=== PATIENT | male | born 1960 | race Two or more races ===

== ENCOUNTER 2022-04-13 16:03 | Inpatient (IN) | payer MEDICARE, OTHER ==
[~2022-04-13] VITALS: Ht 175.3 cm; Wt 105.4 kg
[2022-04-13 18:17] LABS: Urine Bacteria FEW /hpf (None Seen); Urine Blood Negative /uL (Negative); Urine Mucus FEW (None Seen); Urine Specific Gravity 1.034 (1.001-1.035); Urine WBC 1 /hpf (0 - 3)
[2022-04-13 18:46] LABS: Basophils # (auto) 0.1 10 ^3/uL (0-0.2); Basophils % (auto) 1.1 % (0.0-2.0); Eosinophils # (auto) 0.1 10 ^3/uL (0-0.8); Eosinophils % (auto) 2.6 % (0.0-7.0); Hematocrit 37.7 % (41.0-53.0); Hemoglobin 12.7 g/dL (13.5-17.5); Lymphocytes # (auto) 1.9 10 ^3/uL (0.4-5.4); Lymphocytes % (auto) 35.7 % (10.0-50.0); Mean Corpuscular Hemoglobin 33.9 pg (28.0-32.0); Mean Corpuscular Hgb Conc. 33.6 g/dL (32.0-36.0); Mean Corpuscular Volume 100.7 fL (80.0-100.0); Monocytes # (auto) 0.6 10 ^3/uL (0-1.3); Monocytes % (auto) 11.4 % (0.0-12.0); Neutrophils # (auto) 2.6 10 ^3/uL (1.6-8.6); Neutrophils % (auto) 49.2 % (37.0-80.0); Nucleated Red Blood Cells % 0.3 %; Red Blood Cells 3.74 10^6/uL (4.5-5.90); Red Cell Distribution Width 14.9 % (11.8-14.3); White Blood Cell 5.3 10^3/uL (4.4-10.8)
[2022-04-13 19:02] LABS: Amylase 36 U/L (25-115); Lipase 144 U/L (73-393)
[2022-04-13 19:04] LABS: Albumin 2.2 g/dL (3.4-5.0); BUN/Creatinine Ratio 15.9; Potassium 3.2 mmol/L (3.5-5.1)
[2022-04-13 19:07] LABS: Total Protein 6.5 g/dL (6.4-8.2)
[2022-04-13 21:49] LABS: INR 1.59 (0.9-1.15)
[2022-04-13] MEDS ORDERED: LORazepam 0.5 MG TAB PO PRN (23:15)
[2022-04-13] MEDS ORDERED: ONDANSETRON HCL 4 MG/2 ML VIAL IV PRN (23:15)
[2022-04-13] MEDS ORDERED: DOCUSATE SOD 100 MG CAP PO PRN (23:15)
[2022-04-13] MEDS ORDERED: MORPHINE SULFATE INJ 2 MG/ml SYRG IV PRN (23:15)
[2022-04-13] MEDS ORDERED: ACETAMINOPHEN 325 MG TAB PO PRN (23:15)
[2022-04-13] MEDS ORDERED: HYDROcodone-ACET 5/325MG TAB PO PRN (23:15)
[2022-04-13] MEDS: SODIUM CHLORIDE 0.9% 1,000 ML IV SCH (23:39)
[2022-04-13] MEDS: metroNIDAZOLE 500MG/100ML 100 ML IV SCH (23:39)
[2022-04-14 06:23] LABS: Basophils # (auto) 0 10 ^3/uL (0-0.2); Eosinophils # (auto) 0.1 10 ^3/uL (0-0.8); Hemoglobin 11.2 g/dL (13.5-17.5); Monocytes # (auto) 0.5 10 ^3/uL (0-1.3); Monocytes % (auto) 13.1 % (0.0-12.0); Neutrophils # (auto) 1.5 10 ^3/uL (1.6-8.6); Nucleated Red Blood Cells % 0.2 %; Red Cell Distribution Width 14.7 % (11.8-14.3)
[2022-04-14 06:25] LABS: Basophils % (auto) 0.7 % (0.0-2.0); Eosinophils % (auto) 3.6 % (0.0-7.0); Lymphocytes # (auto) 1.6 10 ^3/uL (0.4-5.4); Lymphocytes % (auto) 42.8 % (10.0-50.0); Mean Corpuscular Hemoglobin 34.3 pg (28.0-32.0); Mean Corpuscular Hgb Conc. 34.1 g/dL (32.0-36.0); Mean Corpuscular Volume 100.8 fL (80.0-100.0); Neutrophils % (auto) 39.8 % (37.0-80.0); Red Blood Cells 3.28 10^6/uL (4.5-5.90); White Blood Cell 3.8 10^3/uL (4.4-10.8)
[2022-04-14 06:29] LABS: BUN/Creatinine Ratio 22.2; Calcium 7.5 mg/dL (8.5-10.1); Potassium 3.1 mmol/L (3.5-5.1)
[2022-04-14] MEDS: metroNIDAZOLE 500MG/100ML 100 ML IV SCH ×3 (06:36→22:08)
[2022-04-14] MEDS ORDERED: POTASSIUM CHL 20MEQ/100ML 100 ML IV ONE (11:00)
[2022-04-14] MEDS ORDERED: POTASSIUM CHL 20 Meq TABLET PO ONE (11:00)
[2022-04-14] MEDS: LACTULOSE 20Gm/30ML SOLN PO SCH ×2 (11:34→18:47)
[2022-04-14 13:27] VITALS: BP 110/73
[2022-04-14] MEDS ORDERED: FUROSEMIDE 40 MG/4 ML VIAL IV ONE (15:30)
[2022-04-14 16:24] VITALS: BP 111/63
[2022-04-14] MEDS: SODIUM CHLORIDE 0.9% 1,000 ML IV SCH (18:16)
[2022-04-14] MEDS ORDERED: TAMS0.4C36 PO (18:45)
[2022-04-14] MEDS ORDERED: METF-370 PO (18:45)
[2022-04-14 21:44] VITALS: BP 106/70
[2022-04-15] MEDS: LACTULOSE 20Gm/30ML SOLN PO SCH ×5 (00:14→23:18)
[2022-04-15 05:02] VITALS: BP 115/66
[2022-04-15] MEDS: metroNIDAZOLE 500MG/100ML 100 ML IV SCH ×3 (06:50→22:13)
[2022-04-15 07:14] LABS: Basophils # (auto) 0 10 ^3/uL (0-0.2); Mean Corpuscular Hemoglobin 34.8 pg (28.0-32.0); Monocytes # (auto) 0.6 10 ^3/uL (0-1.3)
[2022-04-15 07:18] LABS: Basophils % (auto) 0.8 % (0.0-2.0); Eosinophils # (auto) 0.1 10 ^3/uL (0-0.8); Eosinophils % (auto) 3.5 % (0.0-7.0); Hematocrit 32.4 % (41.0-53.0); Hemoglobin 11.1 g/dL (13.5-17.5); Lymphocytes # (auto) 1.6 10 ^3/uL (0.4-5.4); Lymphocytes % (auto) 38.6 % (10.0-50.0); Mean Corpuscular Hgb Conc. 34.4 g/dL (32.0-36.0); Mean Corpuscular Volume 101.1 fL (80.0-100.0); Monocytes % (auto) 14.2 % (0.0-12.0); Neutrophils # (auto) 1.8 10 ^3/uL (1.6-8.6); Neutrophils % (auto) 42.9 % (37.0-80.0); Nucleated Red Blood Cells % 0.5 %; Red Cell Distribution Width 14.4 % (11.8-14.3); White Blood Cell 4.2 10^3/uL (4.4-10.8)
[2022-04-15 07:30] LABS: Calcium 7.4 mg/dL (8.5-10.1); Potassium 3.1 mmol/L (3.5-5.1)
[2022-04-15 07:32] LABS: BUN/Creatinine Ratio 15.3
[2022-04-15 08:46] VITALS: BP 107/94
[2022-04-15] MEDS: FUROSEMIDE 40 MG/4 ML VIAL IV SCH (09:45)
[2022-04-15] MEDS: SODIUM CHLORIDE 0.9% 1,000 ML IV SCH (09:45)
[2022-04-15 10:50] LABS: Alcohol, Urine < 3.0 mg/dL (0-10); Amphetamine Screen, Urine NEGATIVE (NEGATIVE); Barbiturate Scree,Urine NEGATIVE (NEGATIVE); Benzodiazephine Screen, Urine NEGATIVE (NEGATIVE); Cannabinoid Screen, Urine NEGATIVE (NEGATIVE); Cocaine Screen, Urine NEGATIVE (NEGATIVE); Opiate Scree,Urine NEGATIVE (NEGATIVE); Phencyclidine Screen, Urine NEGATIVE (NEGATIVE)
[2022-04-15] MEDS ORDERED: DEXTROSE (50%) 50ML SYRG IV PRN (11:30)
[2022-04-15] MEDS: InsuLIN REG 1unit/0.01ml Soln (100units/ml) SC SCH ×3 (11:30→21:59)
[2022-04-15] MEDS: ACCU-CHEK COMFORT CURVE STRIP VI SCH ×3 (11:50→21:59)
[2022-04-15 12:00] VITALS: BP 96/62
[2022-04-15] MEDS: POTASSIUM CHL 20MEQ/100ML 100 ML IV SCH ×2 (13:30→17:54)
[2022-04-15 16:00] VITALS: BP 95/52
[2022-04-15] MEDS ORDERED: phytonadione 10 MG in SODIUM CHL 0.9% 50 ML IV ONE (17:30)
[2022-04-15 21:41] VITALS: BP 100/59
[2022-04-16] MEDS: SODIUM CHLORIDE 0.9% 1,000 ML IV SCH (04:11)
[2022-04-16 05:05] VITALS: BP 109/60
[2022-04-16] MEDS: metroNIDAZOLE 500MG/100ML 100 ML IV SCH (05:42)
[2022-04-16] MEDS: LACTULOSE 20Gm/30ML SOLN PO SCH (05:43)
[2022-04-16 06:11] LABS: Hemoglobin 11.6 g/dL (13.5-17.5); Lymphocytes # (auto) 2.5 10 ^3/uL (0.4-5.4); Nucleated Red Blood Cells % 0.5 %
[2022-04-16 06:14] LABS: BUN/Creatinine Ratio 18.5; Calcium 7.4 mg/dL (8.5-10.1); Potassium 3.3 mmol/L (3.5-5.1)
[2022-04-16 06:15] LABS: Basophils # (auto) 0 10 ^3/uL (0-0.2); Basophils % (auto) 0.6 % (0.0-2.0); Eosinophils # (auto) 0.2 10 ^3/uL (0-0.8); Eosinophils % (auto) 4.2 % (0.0-7.0); Hematocrit 33.6 % (41.0-53.0); Lymphocytes % (auto) 42.5 % (10.0-50.0); Mean Corpuscular Hemoglobin 35.1 pg (28.0-32.0); Mean Corpuscular Hgb Conc. 34.6 g/dL (32.0-36.0); Mean Corpuscular Volume 101.4 fL (80.0-100.0); Monocytes # (auto) 0.6 10 ^3/uL (0-1.3); Monocytes % (auto) 10.7 % (0.0-12.0); Neutrophils # (auto) 2.4 10 ^3/uL (1.6-8.6); Red Blood Cells 3.32 10^6/uL (4.5-5.90); Red Cell Distribution Width 14.4 % (11.8-14.3); White Blood Cell 5.8 10^3/uL (4.4-10.8)
[2022-04-16] MEDS: ACCU-CHEK COMFORT CURVE STRIP VI SCH ×2 (06:45→11:42)
[2022-04-16] MEDS: InsuLIN REG 1unit/0.01ml Soln (100units/ml) SC SCH ×2 (06:45→11:30)
[2022-04-16 09:43] VITALS: BP 109/62
[2022-04-16] MEDS ORDERED: POTASSIUM EFFERVESENT TAB 25 MEQ GT ONE (10:30)
[2022-04-16] MEDS ORDERED: FURO1TAB33 PO (10:31)
[2022-04-16] MEDS ORDERED: LACT10SO3 PO (10:31)
[2022-04-16] MEDS: FUROSEMIDE 40 MG/4 ML VIAL IV SCH (11:02)
[2022-04-16 11:25] VITALS: BP 109/62
[2022-04-17 10:14] LABS: Hepatitis B Surface Antibody Negative (Negative)
[2022-04-17 10:50] LABS: Hepatitis A Total Antibody Positive (Negative)
[2022-04-17 13:13] LABS: Hepatitis C Antibody Negative (Negative)
== END 2022-04-16 11:45 | disposition home or self-care (01) | DRG 433 ==
LOC: ER 16:03 → OVERFLOW 23:11 → WEST WING 04-14 12:42
PROVIDERS: ADMIT Hospitalist; ATTEND Internal Medicine Pulmonary Disease
PROC: 0W9G3ZZ Drainage of Peritoneal Cavity, Percutaneous Approach (ICD-10-PCS; principal; 2022-04-13)
DX: K74.60 Unspecified cirrhosis of liver (principal); R18.8 Other ascites; K72.90 Hepatic failure, unspecified without coma; E88.09 Other disorders of plasma-protein metabolism, not elsewhere classified; Z20.822 Contact with and (suspected) exposure to COVID-19; F17.200 Nicotine dependence, unspecified, uncomplicated; F10.10 Alcohol abuse, uncomplicated; E87.70 Fluid overload, unspecified; E11.9 Type 2 diabetes mellitus without complications
CPT/HCPCS: 36415; 49082; 74176; 76705; 80048; 80053; 80307; 81001; 82140; 82150; 82728; 82962; 83690; 84484; 85025; 85610; 86704; 86706; 86708; 86803; 87086; 87205; 87340; 89051; 93005; 96360; 96361; G0378; J3430; J3480; J3490

== ENCOUNTER 2022-04-18 20:31 | Inpatient (IN) | payer MEDICARE ==
[~2022-04-18] VITALS: Ht 175.3 cm; Wt 106.9 kg
[~2022-04-18 20:31] MED LIST: FURO1TAB33 PO; LACT10SO3 PO; METF-370 PO; TAMS0.4C36 PO
[2022-04-18] MEDS ORDERED: FUROSEMIDE 100 MG/10ML VIAL IV ONE (22:30)
[2022-04-18] MEDS ORDERED: SPIRONOLACTONE 25 MG TAB PO ONE (22:30)
[2022-04-19 00:30] LABS: Basophils # (auto) 0 10 ^3/uL (0-0.2); Eosinophils # (auto) 0.2 10 ^3/uL (0-0.8); Lymphocytes # (auto) 1.9 10 ^3/uL (0.4-5.4); Monocytes # (auto) 0.5 10 ^3/uL (0-1.3)
[2022-04-19 00:32] LABS: Basophils % (auto) 0.5 % (0.0-2.0); Eosinophils % (auto) 3.5 % (0.0-7.0); Hematocrit 34.3 % (41.0-53.0); Hemoglobin 11.7 g/dL (13.5-17.5); Lymphocytes % (auto) 40.4 % (10.0-50.0); Mean Corpuscular Hemoglobin 34.8 pg (28.0-32.0); Mean Corpuscular Hgb Conc. 34.1 g/dL (32.0-36.0); Mean Corpuscular Volume 102.1 fL (80.0-100.0); Monocytes % (auto) 11.4 % (0.0-12.0); Neutrophils % (auto) 44.2 % (37.0-80.0); Nucleated Red Blood Cells % 0.4 %; Red Blood Cells 3.36 10^6/uL (4.5-5.90); Red Cell Distribution Width 15.3 % (11.8-14.3); White Blood Cell 4.6 10^3/uL (4.4-10.8)
[2022-04-19 00:42] LABS: INR 1.92 (0.9-1.15)
[2022-04-19 00:47] LABS: Albumin 1.9 g/dL (3.4-5.0); Calcium 7.6 mg/dL (8.5-10.1); Potassium 3.5 mmol/L (3.5-5.1)
[2022-04-19 00:48] LABS: BUN/Creatinine Ratio 19.4
[2022-04-19 00:51] LABS: Bilirubin, Total 1.6 mg/dL (0.2-1.0); Total Protein 5.9 g/dL (6.4-8.2)
[2022-04-19] MEDS ORDERED: MORPHINE SULFATE INJ 2 MG/ml SYRG IV PRN ×2 (02:00→03:00)
[2022-04-19] MEDS ORDERED: DEXTROSE (50%) 50ML SYRG IV PRN (02:00)
[2022-04-19] MEDS ORDERED: ONDANSETRON HCL 4 MG/2 ML VIAL IV PRN (02:00)
[2022-04-19] MEDS ORDERED: IBUPROFEN 600 MG TAB PO PRN (02:15)
[2022-04-19] MEDS: ALBUMIN 25% 100 ML IV SCH ×2 (02:23→11:17)
[2022-04-19] MEDS ORDERED: NITROGLYCERIN 0.4 MG SL TAB SL PRN (03:00)
[2022-04-19 04:11] LABS: Basophils # (auto) 0.1 10 ^3/uL (0-0.2); Basophils % (auto) 1.3 % (0.0-2.0); Eosinophils # (auto) 0.1 10 ^3/uL (0-0.8); Eosinophils % (auto) 3.5 % (0.0-7.0); Hematocrit 31.7 % (41.0-53.0); Hemoglobin 10.7 g/dL (13.5-17.5); Lymphocytes # (auto) 1.6 10 ^3/uL (0.4-5.4); Lymphocytes % (auto) 41.8 % (10.0-50.0); Mean Corpuscular Hgb Conc. 33.7 g/dL (32.0-36.0); Mean Corpuscular Volume 100.9 fL (80.0-100.0); Monocytes # (auto) 0.4 10 ^3/uL (0-1.3); Monocytes % (auto) 11.2 % (0.0-12.0); Neutrophils # (auto) 1.6 10 ^3/uL (1.6-8.6); Neutrophils % (auto) 42.2 % (37.0-80.0); Nucleated Red Blood Cells % 0.2 %; Red Blood Cells 3.14 10^6/uL (4.5-5.90); White Blood Cell 3.9 10^3/uL (4.4-10.8)
[2022-04-19 05:09] LABS: Albumin 2.2 g/dL (3.4-5.0); BUN/Creatinine Ratio 19.6; Bilirubin, Total 1.9 mg/dL (0.2-1.0); Calcium 7.6 mg/dL (8.5-10.1); Total Protein 5.7 g/dL (6.4-8.2)
[2022-04-19] MEDS ORDERED: POTASSIUM CHL 20 Meq TABLET PO ONE (05:45)
[2022-04-19] MEDS: LACTULOSE 20Gm/30ML SOLN PO SCH ×4 (05:51→23:56)
[2022-04-19] MEDS: SODIUM CHLOR 0.9% PF (SALINE LOCK) 10ML VIAL/SYR IV SCH ×3 (05:51→21:27)
[2022-04-19] MEDS: ACCU-CHEK COMFORT CURVE STRIP VI SCH ×4 (06:41→21:27)
[2022-04-19] MEDS: InsuLIN REG 1unit/0.01ml Soln (100units/ml) SC SCH ×4 (06:41→21:30)
[2022-04-19] MEDS: FUROSEMIDE 40 MG/4 ML VIAL IV SCH (11:16)
[2022-04-19] MEDS: FAMOTIDINE (10MG/ML) 2ML VL IV SCH ×2 (11:17→21:27)
[2022-04-19] MEDS: SPIRONOLACTONE 25 MG TAB PO SCH (11:18)
[2022-04-19 15:21] VITALS: BP 109/68
[2022-04-19 17:00] VITALS: BP 109/68
[2022-04-19] MEDS ORDERED: phytonadione 10 MG in SODIUM CHL 0.9% 50 ML IV ONE (18:30)
[2022-04-19] MEDS ORDERED: ALBUMIN 25% 100 ML IV SCH (21:45)
[2022-04-19 22:50] VITALS: BP 103/77
[2022-04-20 05:00] VITALS: BP 99/57
[2022-04-20 05:04] LABS: Albumin 2.1 g/dL (3.4-5.0); BUN/Creatinine Ratio 14.3; Basophils # (auto) 0 10 ^3/uL (0-0.2); Calcium 7.4 mg/dL (8.5-10.1); Eosinophils # (auto) 0.1 10 ^3/uL (0-0.8); Hemoglobin 10.5 g/dL (13.5-17.5); Mean Corpuscular Volume 101.2 fL (80.0-100.0); Monocytes # (auto) 0.5 10 ^3/uL (0-1.3); Nucleated Red Blood Cells % 0.1 %; Potassium 3.9 mmol/L (3.5-5.1); Red Cell Distribution Width 14.7 % (11.8-14.3)
[2022-04-20 05:05] LABS: Basophils % (auto) 0.5 % (0.0-2.0); Eosinophils % (auto) 3.2 % (0.0-7.0); Hematocrit 30.5 % (41.0-53.0); Lymphocytes # (auto) 1.4 10 ^3/uL (0.4-5.4); Lymphocytes % (auto) 39.4 % (10.0-50.0); Mean Corpuscular Hemoglobin 34.7 pg (28.0-32.0); Mean Corpuscular Hgb Conc. 34.3 g/dL (32.0-36.0); Monocytes % (auto) 13.2 % (0.0-12.0); Neutrophils # (auto) 1.6 10 ^3/uL (1.6-8.6); Neutrophils % (auto) 43.7 % (37.0-80.0); Red Blood Cells 3.01 10^6/uL (4.5-5.90); White Blood Cell 3.7 10^3/uL (4.4-10.8)
[2022-04-20 05:07] LABS: Bilirubin, Total 1.2 mg/dL (0.2-1.0); Total Protein 5.1 g/dL (6.4-8.2)
[2022-04-20] MEDS: SODIUM CHLOR 0.9% PF (SALINE LOCK) 10ML VIAL/SYR IV SCH ×3 (06:17→23:09)
[2022-04-20] MEDS: LACTULOSE 20Gm/30ML SOLN PO SCH ×4 (06:17→23:19)
[2022-04-20] MEDS: InsuLIN REG 1unit/0.01ml Soln (100units/ml) SC SCH ×4 (06:18→22:00)
[2022-04-20] MEDS: ACCU-CHEK COMFORT CURVE STRIP VI SCH ×4 (06:18→23:09)
[2022-04-20] MEDS: SPIRONOLACTONE 25 MG TAB PO SCH (09:30)
[2022-04-20] MEDS: FAMOTIDINE (10MG/ML) 2ML VL IV SCH ×2 (09:30→23:08)
[2022-04-20] MEDS: FUROSEMIDE 40 MG/4 ML VIAL IV SCH (09:31)
[2022-04-20 09:32] VITALS: BP 111/57
[2022-04-20] MEDS ORDERED: PHYTONADIONE (VIT K)10 MG/ML 1ML VIAL SUBCUT ONE (10:30)
[2022-04-20 12:26] LABS: INR 1.88 (0.9-1.15); Partial Thromboplastin Time 38.4 sec (24.6-33.4)
[2022-04-20 12:57] VITALS: BP 96/48
[2022-04-20 16:25] VITALS: BP 118/53
[2022-04-20 22:00] VITALS: BP 112/68
[2022-04-21 05:30] VITALS: BP 107/66
[2022-04-21] MEDS: ACCU-CHEK COMFORT CURVE STRIP VI SCH ×2 (06:14→12:43)
[2022-04-21] MEDS: InsuLIN REG 1unit/0.01ml Soln (100units/ml) SC SCH ×2 (06:14→11:30)
[2022-04-21] MEDS: SODIUM CHLOR 0.9% PF (SALINE LOCK) 10ML VIAL/SYR IV SCH (06:15)
[2022-04-21] MEDS: LACTULOSE 20Gm/30ML SOLN PO SCH ×2 (06:18→12:00)
[2022-04-21 08:00] VITALS: BP 105/64
[2022-04-21 09:00] VITALS: BP 105/64
[2022-04-21] MEDS: FUROSEMIDE 40 MG/4 ML VIAL IV SCH (10:18)
[2022-04-21] MEDS: FAMOTIDINE (10MG/ML) 2ML VL IV SCH (10:18)
[2022-04-21] MEDS: SPIRONOLACTONE 25 MG TAB PO SCH (10:18)
[2022-04-21 11:58] VITALS: BP 105/64
== END 2022-04-21 12:45 | disposition home or self-care (01) | DRG 432 ==
LOC: ER 20:31 → OVERFLOW 04-19 02:58 → WEST WING 04-19 13:55
PROVIDERS: ADMIT Nurse Practitioner Family; ATTEND Family Medicine
PROC: 0W9G3ZZ Drainage of Peritoneal Cavity, Percutaneous Approach (ICD-10-PCS; principal; 2022-04-21)
DX: K74.60 Unspecified cirrhosis of liver (principal); E43 Unspecified severe protein-calorie malnutrition; D68.9 Coagulation defect, unspecified; R18.8 Other ascites; K72.90 Hepatic failure, unspecified without coma; E88.09 Other disorders of plasma-protein metabolism, not elsewhere classified; F17.200 Nicotine dependence, unspecified, uncomplicated; R16.1 Splenomegaly, not elsewhere classified; R79.89 Other specified abnormal findings of blood chemistry; Z20.822 Contact with and (suspected) exposure to COVID-19; Z68.34 Body mass index [BMI] 34.0-34.9, adult; Z71.6 Tobacco abuse counseling
CPT/HCPCS: 36415; 76700; 76942; 80053; 82140; 82962; 83036; 83986; 85025; 85610; 85730; 87081; 87205; 89051; 96365; 96366; 96375; G0378; J1815; J3430; J3490; P9047

== ENCOUNTER 2022-05-14 15:54 | Inpatient (IN) | payer MEDICARE ==
[~2022-05-14] VITALS: Ht 30.5 cm; Wt 103.9 kg
[2022-05-14 16:33] LABS: Basophils # (auto) 0.1 10 ^3/uL (0-0.2); Basophils % (auto) 1.2 % (0.0-2.0); Eosinophils # (auto) 0.2 10 ^3/uL (0-0.8); Eosinophils % (auto) 3.1 % (0.0-7.0); Hematocrit 35.1 % (41.0-53.0); Hemoglobin 11.8 g/dL (13.5-17.5); Lymphocytes # (auto) 1.9 10 ^3/uL (0.4-5.4); Lymphocytes % (auto) 26.8 % (10.0-50.0); Mean Corpuscular Hemoglobin 34.7 pg (28.0-32.0); Mean Corpuscular Hgb Conc. 33.7 g/dL (32.0-36.0); Mean Corpuscular Volume 103.1 fL (80.0-100.0); Monocytes # (auto) 0.9 10 ^3/uL (0-1.3); Monocytes % (auto) 12.7 % (0.0-12.0); Neutrophils % (auto) 56.2 % (37.0-80.0); Nucleated Red Blood Cells % 0.1 %; Red Cell Distribution Width 15.2 % (11.8-14.3); White Blood Cell 7.1 10^3/uL (4.4-10.8)
[2022-05-14 16:51] LABS: INR 1.47 (0.9-1.15); Partial Thromboplastin Time 32.2 sec (24.6-33.4)
[2022-05-14 16:52] LABS: Albumin 1.9 g/dL (3.4-5.0); Calcium 7.8 mg/dL (8.5-10.1); Potassium 4.7 mmol/L (3.5-5.1)
[2022-05-14 16:56] LABS: BUN/Creatinine Ratio 18.3; Bilirubin, Total 1.3 mg/dL (0.2-1.0); Total Protein 6.3 g/dL (6.4-8.2)
[2022-05-14 18:40] LABS: Urine Bacteria NONE SEEN /hpf (None Seen); Urine Blood Negative /uL (Negative); Urine Mucus FEW (None Seen); Urine Specific Gravity 1.019 (1.001-1.035); Urine WBC <1 /hpf (0 - 3)
[2022-05-14] MEDS ORDERED: MORPHINE SULFATE INJ 2 MG/ml SYRG IV PRN (19:15)
[2022-05-14] MEDS ORDERED: DEXTROSE (50%) 50ML SYRG IV PRN (19:15)
[2022-05-14] MEDS ORDERED: ONDANSETRON HCL 4 MG/2 ML VIAL IV PRN (19:15)
[2022-05-14] MEDS ORDERED: DOCUSATE SOD 100 MG CAP PO PRN (19:15)
[2022-05-14] MEDS: InsuLIN REG 1unit/0.01ml Soln (100units/ml) SC SCH (22:00)
[2022-05-14] MEDS: ACCU-CHEK COMFORT CURVE STRIP VI SCH (22:52)
[2022-05-14 23:15] VITALS: BP 114/63
[2022-05-15] MEDS: LACTULOSE 20Gm/30ML SOLN PO SCH ×5 (00:22→23:27)
[2022-05-15 05:05] VITALS: BP 115/74
[2022-05-15] MEDS: metFORMIN HYDROCHLORIDE 500 MG TAB PO SCH ×2 (06:28→18:06)
[2022-05-15] MEDS: InsuLIN REG 1unit/0.01ml Soln (100units/ml) SC SCH ×4 (06:28→22:54)
[2022-05-15] MEDS: ACCU-CHEK COMFORT CURVE STRIP VI SCH ×4 (06:29→22:54)
[2022-05-15 07:21] LABS: Basophils # (auto) 0.1 10 ^3/uL (0-0.2); Eosinophils # (auto) 0.2 10 ^3/uL (0-0.8); Hemoglobin 11.5 g/dL (13.5-17.5); Monocytes # (auto) 0.7 10 ^3/uL (0-1.3); Red Blood Cells 3.28 10^6/uL (4.5-5.90); White Blood Cell 6.1 10^3/uL (4.4-10.8)
[2022-05-15 07:22] LABS: Basophils % (auto) 1.1 % (0.0-2.0); Eosinophils % (auto) 3.3 % (0.0-7.0); Hematocrit 33.7 % (41.0-53.0); Lymphocytes # (auto) 1.9 10 ^3/uL (0.4-5.4); Lymphocytes % (auto) 30.4 % (10.0-50.0); Mean Corpuscular Hgb Conc. 34.1 g/dL (32.0-36.0); Mean Corpuscular Volume 102.7 fL (80.0-100.0); Monocytes % (auto) 11.7 % (0.0-12.0); Neutrophils # (auto) 3.3 10 ^3/uL (1.6-8.6); Neutrophils % (auto) 53.5 % (37.0-80.0); Nucleated Red Blood Cells % 0.2 %
[2022-05-15 07:43] LABS: Potassium 4.8 mmol/L (3.5-5.1)
[2022-05-15 08:01] LABS: Albumin 1.8 g/dL (3.4-5.0); BUN/Creatinine Ratio 20.8; Bilirubin, Total 1.8 mg/dL (0.2-1.0); Calcium 7.8 mg/dL (8.5-10.1); Total Protein 6.2 g/dL (6.4-8.2)
[2022-05-15 09:00] VITALS: BP 125/67
[2022-05-15] MEDS: FUROSEMIDE 20 MG TAB PO SCH (11:16)
[2022-05-15 13:00] VITALS: BP 123/65
[2022-05-15] MEDS ORDERED: SPIRONOLACTONE 25 MG TAB PO ONE (15:45)
[2022-05-15] MEDS ORDERED: ALBUMIN 25% 100 ML IV SCH ×2 (16:00→21:00)
[2022-05-15 16:42] VITALS: BP 109/59
[2022-05-15] MEDS ORDERED: TAMSULOSIN HYDROCHLORIDE 0.4 MG CAP PO SCH (18:00)
[2022-05-15 22:00] VITALS: BP 110/66
[2022-05-16 05:00] VITALS: BP 102/50
[2022-05-16] MEDS: ACCU-CHEK COMFORT CURVE STRIP VI SCH ×2 (06:08→12:32)
[2022-05-16] MEDS: InsuLIN REG 1unit/0.01ml Soln (100units/ml) SC SCH ×2 (06:08→12:32)
[2022-05-16] MEDS: LACTULOSE 20Gm/30ML SOLN PO SCH ×2 (06:08→13:00)
[2022-05-16 06:13] LABS: Calcium 7.4 mg/dL (8.5-10.1); Potassium 4.3 mmol/L (3.5-5.1)
[2022-05-16] MEDS: metFORMIN HYDROCHLORIDE 500 MG TAB PO SCH (06:19)
[2022-05-16 09:00] VITALS: BP 104/53
[2022-05-16] MEDS: FUROSEMIDE 20 MG TAB PO SCH (09:54)
[2022-05-16] MEDS ORDERED: SPIRONOLACTONE 25 MG TAB PO SCH (10:00)
[2022-05-16 13:00] VITALS: BP 112/63
[2022-05-16] MEDS ORDERED: SPIR25TA PO (13:05)
[2022-05-16 14:00] VITALS: BP 104/53
== END 2022-05-16 16:51 | disposition home or self-care (01) | DRG 434 ==
LOC: ER 15:54 → OVERFLOW 19:12 → WEST WING 20:42
PROVIDERS: ADMIT Nurse Practitioner Family; ATTEND Student in an Organized Health Care Education/Training Program
PROC: 0W9G30Z Drainage of Peritoneal Cavity with Drainage Device, Percutaneous Approach (ICD-10-PCS; principal; 2022-05-15)
DX: K70.31 Alcoholic cirrhosis of liver with ascites (principal); K70.40 Alcoholic hepatic failure without coma; N40.0 Benign prostatic hyperplasia without lower urinary tract symptoms; E11.9 Type 2 diabetes mellitus without complications; D69.59 Other secondary thrombocytopenia; D63.8 Anemia in other chronic diseases classified elsewhere; Z20.822 Contact with and (suspected) exposure to COVID-19; Z79.899 Other long term (current) drug therapy; Z79.84 Long term (current) use of oral hypoglycemic drugs; E88.09 Other disorders of plasma-protein metabolism, not elsewhere classified
CPT/HCPCS: 36415; 71045; 76705; 76942; 80048; 80053; 81001; 82962; 83880; 83986; 84484; 85025; 85610; 85730; 87205; 87426; 89051; 93005; G0378; P9047

== ENCOUNTER → 2022-05-20 | Outpatient (CLI) | payer MEDICARE ==
[~2022-05-20] MED LIST changes: +SPIR25TA PO
[2022-05-20 11:12] LABS: Albumin 2.4 g/dL (3.4-5.0); Calcium 8.3 mg/dL (8.5-10.1); Eosinophils # (auto) 0.3 10 ^3/uL (0-0.8); Hemoglobin 12.5 g/dL (13.5-17.5); Lymphocytes # (auto) 1.7 10 ^3/uL (0.4-5.4); Monocytes % (auto) 12.6 % (0.0-12.0); Potassium 4.5 mmol/L (3.5-5.1)
[2022-05-20 11:14] LABS: Basophils # (auto) 0 10 ^3/uL (0-0.2); Basophils % (auto) 0.8 % (0.0-2.0); Eosinophils % (auto) 4.9 % (0.0-7.0); Hematocrit 36.5 % (41.0-53.0); Mean Corpuscular Hemoglobin 35.3 pg (28.0-32.0); Mean Corpuscular Hgb Conc. 34.3 g/dL (32.0-36.0); Monocytes # (auto) 0.8 10 ^3/uL (0-1.3); Neutrophils # (auto) 3.2 10 ^3/uL (1.6-8.6); Neutrophils % (auto) 53.7 % (37.0-80.0); Nucleated Red Blood Cells % 0.3 %; Red Blood Cells 3.54 10^6/uL (4.5-5.90)
[2022-05-20 11:17] LABS: BUN/Creatinine Ratio 22.2; Bilirubin, Total 1.4 mg/dL (0.2-1.0); Total Protein 7.2 g/dL (6.4-8.2)
[2022-05-20 11:25] LABS: INR 1.52 (0.9-1.15)
== END | disposition home or self-care (01) ==
LOC: LAB 10:04
PROVIDERS: ATTEND Internal Medicine Gastroenterology
DX: R18.8 Other ascites (principal); K74.60 Unspecified cirrhosis of liver; R94.5 Abnormal results of liver function studies
CPT/HCPCS: 36415; 80053; 82140; 82728; 85025; 85610; 86803; 87340

== ENCOUNTER → 2022-05-27 | Outpatient (CLI) | payer MEDICARE ==
[2022-05-27 11:57] LABS: Basophils # (auto) 0 10 ^3/uL (0-0.2); Eosinophils # (auto) 0.1 10 ^3/uL (0-0.8); Hemoglobin 11.3 g/dL (13.5-17.5); Monocytes # (auto) 0.7 10 ^3/uL (0-1.3); Monocytes % (auto) 13.1 % (0.0-12.0); Neutrophils # (auto) 3.1 10 ^3/uL (1.6-8.6); Nucleated Red Blood Cells % 0.1 %; White Blood Cell 5.1 10^3/uL (4.4-10.8)
[2022-05-27 12:01] LABS: Basophils % (auto) 0.7 % (0.0-2.0); Eosinophils % (auto) 2.7 % (0.0-7.0); Hematocrit 33.2 % (41.0-53.0); Lymphocytes # (auto) 1.1 10 ^3/uL (0.4-5.4); Lymphocytes % (auto) 22.6 % (10.0-50.0); Mean Corpuscular Hemoglobin 35.2 pg (28.0-32.0); Mean Corpuscular Hgb Conc. 34.1 g/dL (32.0-36.0); Mean Corpuscular Volume 103.2 fL (80.0-100.0); Neutrophils % (auto) 60.9 % (37.0-80.0); Red Blood Cells 3.21 10^6/uL (4.5-5.90); Red Cell Distribution Width 14.8 % (11.8-14.3)
[2022-05-27 12:13] LABS: INR 1.49 (0.9-1.15); Partial Thromboplastin Time 31.9 sec (24.6-33.4)
[2022-05-27 12:18] LABS: Calcium 7.8 mg/dL (8.5-10.1); Potassium 4.3 mmol/L (3.5-5.1)
[2022-05-27 12:24] LABS: BUN/Creatinine Ratio 19.1; Bilirubin, Total 1.4 mg/dL (0.2-1.0); Total Protein 6.7 g/dL (6.4-8.2)
== END | disposition home or self-care (01) ==
LOC: LAB 11:01
PROVIDERS: ATTEND Internal Medicine Gastroenterology
DX: K70.31 Alcoholic cirrhosis of liver with ascites (principal)
CPT/HCPCS: 36415; 80053; 85025; 85610; 85730

== ENCOUNTER → 2022-05-28 | Outpatient (CLI) | payer MEDICARE ==
[~2022-05-28] MED LIST changes: +LACT10SO70 PO; +LEVO500T31 PO; +RIFA550T PO
== END | disposition home or self-care (01) ==
LOC: US 08:20
PROVIDERS: ATTEND Internal Medicine Gastroenterology
DX: K70.31 Alcoholic cirrhosis of liver with ascites (principal); D69.6 Thrombocytopenia, unspecified
CPT/HCPCS: 49083; 76700; 76942; 87205; 89051; C1729

== ENCOUNTER 2022-06-03 10:47 | Inpatient (IN) | payer MEDICARE ==
[~2022-06-03] VITALS: Ht 175.3 cm; Wt 108.1 kg
[~2022-06-03 10:47] MED LIST changes: -LACT10SO70 PO; -LEVO500T31 PO; -RIFA550T PO
[2022-06-03 12:38] LABS: Basophils # (auto) 0 10 ^3/uL (0-0.2); Basophils % (auto) 0.5 % (0.0-2.0); Eosinophils # (auto) 0.2 10 ^3/uL (0-0.8); Eosinophils % (auto) 2.4 % (0.0-7.0); Hematocrit 35.8 % (41.0-53.0); Hemoglobin 11.8 g/dL (13.5-17.5); Lymphocytes # (auto) 1.6 10 ^3/uL (0.4-5.4); Lymphocytes % (auto) 24.9 % (10.0-50.0); Mean Corpuscular Hgb Conc. 33.1 g/dL (32.0-36.0); Mean Corpuscular Volume 105.7 fL (80.0-100.0); Monocytes # (auto) 0.7 10 ^3/uL (0-1.3); Monocytes % (auto) 10.7 % (0.0-12.0); Neutrophils % (auto) 61.5 % (37.0-80.0); Nucleated Red Blood Cells % 0.4 %; Red Blood Cells 3.39 10^6/uL (4.5-5.90); Red Cell Distribution Width 15.4 % (11.8-14.3); White Blood Cell 6.5 10^3/uL (4.4-10.8)
[2022-06-03 12:43] LABS: INR 1.42 (0.9-1.15); Partial Thromboplastin Time 32.7 sec (24.6-33.4)
[2022-06-03 12:49] LABS: Albumin 1.8 g/dL (3.4-5.0); BUN/Creatinine Ratio 30.9; Bilirubin, Total 1.4 mg/dL (0.2-1.0); Calcium 8.2 mg/dL (8.5-10.1)
[2022-06-03 12:57] LABS: Potassium 5.6 mmol/L (3.5-5.1)
[2022-06-03 13:30] LABS: Urine Bacteria FEW /hpf (None Seen); Urine Blood Negative /uL (Negative); Urine Hyaline Cast FEW /lpf (0 - 2); Urine WBC 3 /hpf (0 - 3)
[2022-06-03] MEDS ORDERED: NITROGLYCERIN 0.4 MG SL TAB SL PRN ×2 (14:45→15:15)
[2022-06-03] MEDS ORDERED: MORPHINE SULFATE INJ 2 MG/ml SYRG IV PRN ×3 (14:45→15:15)
[2022-06-03] MEDS ORDERED: ONDANSETRON HCL 4 MG/2 ML VIAL IV PRN ×2 (14:45→15:15)
[2022-06-03] MEDS: PANTOPRAZOLE 40 MG/10 ML VIAL INJ IV ONE ×2 (14:51→16:05)
[2022-06-03] MEDS ORDERED: ALBUMIN 25% 50 ML IV ONE (15:00)
[2022-06-03] MEDS ORDERED: FUROSEMIDE 20 MG/2 ML VIAL IV ONE (15:00)
[2022-06-03 15:12] VITALS: BP 123/67
[2022-06-03] MEDS ORDERED: SODIUM ZIRCONIUM CYCL 10 GM PAK PO ONE (15:30)
[2022-06-03] MEDS ORDERED: FUROSEMIDE 40 MG/4 ML VIAL IV ONE (15:30)
[2022-06-03] MEDS: IPRATROPIUM BROM 0.5 MG/2.5ML INH SOL NEB SCH (17:37)
[2022-06-03] MEDS: ALBUTEROL SULF 2.5 MG/0.5ML(0.5%) NEB SOLN NEB SCH (17:37)
[2022-06-03] MEDS: FUROSEMIDE 40 MG/4 ML VIAL IV SCH (17:47)
[2022-06-03 18:33] LABS: BUN/Creatinine Ratio 32.7; Calcium 7.8 mg/dL (8.5-10.1); Potassium 5.2 mmol/L (3.5-5.1)
[2022-06-03] MEDS: TAMSULOSIN HYDROCHLORIDE 0.4 MG CAP PO SCH (18:36)
[2022-06-03 20:34] LABS: Protein, Urine 13.1 mg/dL (0.0-11.9)
[2022-06-03 22:27] VITALS: BP 96/50
[2022-06-03 23:17] VITALS: BP 96/50
[2022-06-04] VITALS (11 sets, daily range): BP systolic 88–146; BP diastolic 29–78
[2022-06-04] MEDS: ALBUTEROL SULF 2.5 MG/0.5ML(0.5%) NEB SOLN NEB SCH ×4 (00:01→19:41)
[2022-06-04] MEDS: IPRATROPIUM BROM 0.5 MG/2.5ML INH SOL NEB SCH ×4 (00:01→19:41)
[2022-06-04] MEDS: FUROSEMIDE 40 MG/4 ML VIAL IV SCH (05:47)
[2022-06-04 06:58] LABS: Albumin 1.6 g/dL (3.4-5.0); Calcium 7.7 mg/dL (8.5-10.1)
[2022-06-04 07:02] LABS: BUN/Creatinine Ratio 31.9; Basophils # (auto) 0 10 ^3/uL (0-0.2); Bilirubin, Total 1.5 mg/dL (0.2-1.0); Eosinophils # (auto) 0.1 10 ^3/uL (0-0.8); Mean Corpuscular Volume 102.7 fL (80.0-100.0); Monocytes # (auto) 0.6 10 ^3/uL (0-1.3); Total Protein 5.9 g/dL (6.4-8.2); Uric Acid 5.6 mg/dL (3.5-7.2); White Blood Cell 4.7 10^3/uL (4.4-10.8)
[2022-06-04 07:06] LABS: Basophils % (auto) 0.6 % (0.0-2.0); Hematocrit 30.8 % (41.0-53.0); Hemoglobin 10.7 g/dL (13.5-17.5); Lymphocytes # (auto) 0.8 10 ^3/uL (0.4-5.4); Lymphocytes % (auto) 17.8 % (10.0-50.0); Mean Corpuscular Hemoglobin 35.9 pg (28.0-32.0); Mean Corpuscular Hgb Conc. 34.9 g/dL (32.0-36.0); Monocytes % (auto) 11.8 % (0.0-12.0); Neutrophils # (auto) 3.2 10 ^3/uL (1.6-8.6); Neutrophils % (auto) 67.8 % (37.0-80.0); Nucleated Red Blood Cells % 0.2 %; Potassium 6.4 mmol/L (3.5-5.1); Red Cell Distribution Width 14.9 % (11.8-14.3)
[2022-06-04] MEDS ORDERED: ENOXAPARIN SOD 40 MG/0.4 ML SYRINGE SC SCH (10:00)
[2022-06-04] MEDS ORDERED: PANTOPRAZOLE 40 MG/10 ML VIAL INJ IV SCH (10:00)
[2022-06-04] MEDS ORDERED: SPIRONOLACTONE 25 MG TAB PO SCH (10:00)
[2022-06-04] MEDS ORDERED: FUROSEMIDE 20 MG/2 ML VIAL IV SCH (10:00)
[2022-06-04] MEDS ORDERED: cefTRIAXone 1GM/50ML D5W 50 ML IV ONE (11:00)
[2022-06-04] MEDS ORDERED: InsuLIN REG 1unit/0.01ml Soln (100units/ml) IV ONE (11:00)
[2022-06-04] MEDS ORDERED: DEXTROSE (50%) 50ML SYRG IV ONE (11:00)
[2022-06-04] MEDS: SODIUM ZIRCONIUM CYCL 10 GM PAK PO ONE (11:49)
[2022-06-04] MEDS: LACTULOSE 20Gm/30ML SOLN PO SCH ×3 (12:37→23:52)
[2022-06-04 18:03] LABS: BUN/Creatinine Ratio 29.6; Calcium 8.1 mg/dL (8.5-10.1); Potassium 5.1 mmol/L (3.5-5.1)
[2022-06-04] MEDS: TAMSULOSIN HYDROCHLORIDE 0.4 MG CAP PO SCH (18:07)
[2022-06-05] VITALS (23 sets, daily range): BP systolic 83–132; BP diastolic 25–94
[2022-06-05] MEDS: ALBUTEROL SULF 2.5 MG/0.5ML(0.5%) NEB SOLN NEB SCH ×4 (00:24→18:37)
[2022-06-05] MEDS: IPRATROPIUM BROM 0.5 MG/2.5ML INH SOL NEB SCH ×4 (00:24→18:37)
[2022-06-05 05:01] LABS: Basophils # (auto) 0.1 10 ^3/uL (0-0.2); Eosinophils # (auto) 0.1 10 ^3/uL (0-0.8); Hemoglobin 10.6 g/dL (13.5-17.5); Mean Corpuscular Volume 102.8 fL (80.0-100.0); Monocytes # (auto) 0.9 10 ^3/uL (0-1.3); Neutrophils % (auto) 71.3 % (37.0-80.0); Red Cell Distribution Width 14.8 % (11.8-14.3)
[2022-06-05 05:04] LABS: Basophils % (auto) 0.8 % (0.0-2.0); Eosinophils % (auto) 1.1 % (0.0-7.0); Hematocrit 30.3 % (41.0-53.0); Lymphocytes % (auto) 14.4 % (10.0-50.0); Monocytes % (auto) 12.4 % (0.0-12.0); Neutrophils # (auto) 5.2 10 ^3/uL (1.6-8.6); Nucleated Red Blood Cells % 0.1 %; Red Blood Cells 2.95 10^6/uL (4.5-5.90); White Blood Cell 7.2 10^3/uL (4.4-10.8)
[2022-06-05 05:13] LABS: Potassium 5.4 mmol/L (3.5-5.1)
[2022-06-05 05:24] LABS: Albumin 1.7 g/dL (3.4-5.0); BUN/Creatinine Ratio 34.3; Bilirubin, Total 2.5 mg/dL (0.2-1.0); Calcium 8.3 mg/dL (8.5-10.1); Total Protein 5.9 g/dL (6.4-8.2)
[2022-06-05] MEDS: LACTULOSE 20Gm/30ML SOLN PO SCH ×3 (05:50→18:26)
[2022-06-05] MEDS: cefTRIAXone 1GM/50ML D5W 50 ML IV SCH (10:12)
[2022-06-05] MEDS ORDERED: PHYTONADIONE (VIT K)10 MG/ML 1ML VIAL SUBCUT ONE (13:30)
[2022-06-05] MEDS: metroNIDAZOLE 500MG/100ML 100 ML IV SCH ×2 (14:29→21:25)
[2022-06-05] MEDS: TAMSULOSIN HYDROCHLORIDE 0.4 MG CAP PO SCH (18:26)
[2022-06-05] MEDS ORDERED: rifAXIMin 550 MG TAB NG SCH (22:00)
[2022-06-06] VITALS (25 sets, daily range): BP systolic 91–122; BP diastolic 42–63
[2022-06-06] MEDS: LACTULOSE 20Gm/30ML SOLN PO SCH ×5 (00:06→23:54)
[2022-06-06] MEDS: ALBUTEROL SULF 2.5 MG/0.5ML(0.5%) NEB SOLN NEB SCH ×4 (01:07→19:15)
[2022-06-06] MEDS: IPRATROPIUM BROM 0.5 MG/2.5ML INH SOL NEB SCH ×4 (01:07→19:15)
[2022-06-06 04:00] LABS: Albumin 1.7 g/dL (3.4-5.0); Calcium 8.1 mg/dL (8.5-10.1); Potassium 4.7 mmol/L (3.5-5.1); White Blood Cell 6.6 10^3/uL (4.4-10.8)
[2022-06-06 04:02] LABS: Hematocrit 30.2 % (41.0-53.0); Hemoglobin 10.6 g/dL (13.5-17.5); Mean Corpuscular Hemoglobin 35.9 pg (28.0-32.0); Mean Corpuscular Volume 102.7 fL (80.0-100.0); Red Blood Cells 2.94 10^6/uL (4.5-5.90); Red Cell Distribution Width 14.8 % (11.8-14.3)
[2022-06-06 04:05] LABS: BUN/Creatinine Ratio 32.1; Bilirubin, Total 2.7 mg/dL (0.2-1.0); Total Protein 5.9 g/dL (6.4-8.2)
[2022-06-06 04:17] LABS: Basophils % (manual) 0 (0.0-2.0); Blast Cells 0; Eosinophils % (manual) 0 (0-7); Metamyelocytes % 0; Promyelocytes % 0; Reactive Lymphocytes 0
[2022-06-06] MEDS: metroNIDAZOLE 500MG/100ML 100 ML IV SCH ×3 (06:17→21:09)
[2022-06-06 06:43] LABS: Band Neutrophils % (manual) 1; Myelocytes % 1
[2022-06-06 06:44] LABS: Lymphocytes % (manual) 24 (10.0-50.0)
[2022-06-06 06:45] LABS: Monocytes % (manual) 14 (0-12)
[2022-06-06] MEDS: cefTRIAXone 1GM/50ML D5W 50 ML IV SCH (09:27)
[2022-06-06] MEDS: TAMSULOSIN HYDROCHLORIDE 0.4 MG CAP PO SCH (18:06)
[2022-06-06] MEDS: rifAXIMin 550 MG TAB PO SCH (21:10)
[2022-06-07] MEDS: IPRATROPIUM BROM 0.5 MG/2.5ML INH SOL NEB SCH ×5 (00:43→23:36)
[2022-06-07] MEDS: ALBUTEROL SULF 2.5 MG/0.5ML(0.5%) NEB SOLN NEB SCH ×5 (00:43→23:36)
[2022-06-07 05:00] VITALS: BP 97/47
[2022-06-07] MEDS: LACTULOSE 20Gm/30ML SOLN PO SCH ×3 (05:15→18:08)
[2022-06-07] MEDS: metroNIDAZOLE 500MG/100ML 100 ML IV SCH ×3 (05:15→21:29)
[2022-06-07 06:15] LABS: Calcium 7.7 mg/dL (8.5-10.1); Potassium 4.7 mmol/L (3.5-5.1)
[2022-06-07 06:18] LABS: Albumin 1.5 g/dL (3.4-5.0)
[2022-06-07 06:21] LABS: Bilirubin, Total 1.3 mg/dL (0.2-1.0); Total Protein 5.7 g/dL (6.4-8.2)
[2022-06-07 09:00] VITALS: BP 113/65
[2022-06-07] MEDS: cefTRIAXone 1GM/50ML D5W 50 ML IV SCH (09:39)
[2022-06-07] MEDS: FUROSEMIDE 40 MG/4 ML VIAL IV SCH (09:39)
[2022-06-07] MEDS: SPIRONOLACTONE 25 MG TAB PO SCH (09:40)
[2022-06-07] MEDS: rifAXIMin 550 MG TAB PO SCH ×2 (09:40→21:31)
[2022-06-07 13:00] VITALS: BP 111/62
[2022-06-07 17:00] VITALS: BP 123/70
[2022-06-07] MEDS: TAMSULOSIN HYDROCHLORIDE 0.4 MG CAP PO SCH (18:08)
[2022-06-07 22:00] VITALS: BP 123/62
[2022-06-08] MEDS: LACTULOSE 20Gm/30ML SOLN PO SCH ×4 (00:07→17:18)
[2022-06-08 05:00] VITALS: BP 111/52
[2022-06-08] MEDS: metroNIDAZOLE 500MG/100ML 100 ML IV SCH ×4 (05:35→23:02)
[2022-06-08] MEDS: IPRATROPIUM BROM 0.5 MG/2.5ML INH SOL NEB SCH ×3 (07:19→18:46)
[2022-06-08] MEDS: ALBUTEROL SULF 2.5 MG/0.5ML(0.5%) NEB SOLN NEB SCH ×3 (07:19→18:46)
[2022-06-08 09:00] VITALS: BP 115/53
[2022-06-08] MEDS: cefTRIAXone 1GM/50ML D5W 50 ML IV SCH (10:06)
[2022-06-08] MEDS: SPIRONOLACTONE 25 MG TAB PO SCH (10:06)
[2022-06-08] MEDS: FUROSEMIDE 40 MG/4 ML VIAL IV SCH (10:06)
[2022-06-08] MEDS: rifAXIMin 550 MG TAB PO SCH ×2 (10:06→23:02)
[2022-06-08 13:00] VITALS: BP 108/56
[2022-06-08] MEDS ORDERED: NICOTINE 21MG/24 HR TOPICAL PATCH TD ONE (13:30)
[2022-06-08] MEDS ORDERED: NICOTINE 14 MG/24HR TOPICAL PATCH TD ONE (15:00)
[2022-06-08 17:00] VITALS: BP 113/68
[2022-06-08] MEDS: TAMSULOSIN HYDROCHLORIDE 0.4 MG CAP PO SCH (17:18)
[2022-06-08 22:00] VITALS: BP 123/69
[2022-06-09] MEDS: LACTULOSE 20Gm/30ML SOLN PO SCH ×3 (00:16→13:10)
[2022-06-09] MEDS: ALBUTEROL SULF 2.5 MG/0.5ML(0.5%) NEB SOLN NEB SCH ×3 (00:44→12:00)
[2022-06-09] MEDS: IPRATROPIUM BROM 0.5 MG/2.5ML INH SOL NEB SCH ×3 (00:44→12:00)
[2022-06-09 05:00] VITALS: BP 110/76
[2022-06-09] MEDS: metroNIDAZOLE 500MG/100ML 100 ML IV SCH (06:56)
[2022-06-09 09:06] VITALS: BP 115/70
[2022-06-09] MEDS ORDERED: NICOTINE 21MG/24 HR TOPICAL PATCH TD SCH (10:00)
[2022-06-09] MEDS ORDERED: NICOTINE 14 MG/24HR TOPICAL PATCH TD SCH (10:00)
[2022-06-09] MEDS: FUROSEMIDE 40 MG/4 ML VIAL IV SCH (10:46)
[2022-06-09] MEDS: rifAXIMin 550 MG TAB PO SCH (10:48)
[2022-06-09] MEDS: SPIRONOLACTONE 25 MG TAB PO SCH (10:48)
[2022-06-09] MEDS: cefTRIAXone 1GM/50ML D5W 50 ML IV SCH (10:49)
[2022-06-09] MEDS ORDERED: LEVO500T31 PO (12:20)
[2022-06-09] MEDS ORDERED: LACT10SO70 PO (12:20)
[2022-06-09] MEDS ORDERED: RIFA550T PO (12:20)
[2022-06-09 13:00] VITALS: BP 115/78
[2022-06-09] MEDS ORDERED: IPRATROPIUM BROM 0.5 MG/2.5ML INH SOL ONE (17:56)
[2022-06-09] MEDS ORDERED: ALBUTEROL SULF 2.5 MG/0.5ML(0.5%) NEB SOLN ONE (17:57)
== END 2022-06-09 17:20 | disposition home health service (06) | DRG 441 ==
LOC: ER 10:47 → TELE 14:41 → TELE-CENTR 22:03 → ICU WEST 06-04 17:52 → TELE-WESTW 06-07 00:05 → WEST WING 06-08 14:45
PROVIDERS: ADMIT Nurse Practitioner Family; ATTEND Internal Medicine
PROC: 0W9G3ZZ Drainage of Peritoneal Cavity, Percutaneous Approach (ICD-10-PCS; principal; 2022-06-03)
DX: K76.82 Hepatic encephalopathy (principal); E43 Unspecified severe protein-calorie malnutrition; N17.0 Acute kidney failure with tubular necrosis; I50.43 Acute on chronic combined systolic (congestive) and diastolic (congestive) heart failure; R18.8 Other ascites; D68.9 Coagulation defect, unspecified; K74.60 Unspecified cirrhosis of liver; Z20.822 Contact with and (suspected) exposure to COVID-19; D50.9 Iron deficiency anemia, unspecified; E11.22 Type 2 diabetes mellitus with diabetic chronic kidney disease; E87.5 Hyperkalemia; F17.210 Nicotine dependence, cigarettes, uncomplicated; N18.9 Chronic kidney disease, unspecified; N40.0 Benign prostatic hyperplasia without lower urinary tract symptoms; Z68.34 Body mass index [BMI] 34.0-34.9, adult; E66.9 Obesity, unspecified; F10.10 Alcohol abuse, uncomplicated; E88.09 Other disorders of plasma-protein metabolism, not elsewhere classified; Z85.46 Personal history of malignant neoplasm of prostate
CPT/HCPCS: 36415; 71045; 76700; 76942; 80048; 80053; 81001; 82105; 82140; 82570; 82962; 83690; 83880; 84154; 84156; 84300; 84550; 85007; 85025; 85027; 85610; 85730; 87081; 87205; 87426; 89051; 93306; 94640; 96365; 96375; 99291; C9113; G0378; J0696; J1815; J3430; J3490

== ENCOUNTER 2022-06-25 09:43 | Inpatient (IN) | payer MEDICARE ==
[~2022-06-25] VITALS: Ht 175.3 cm; Wt 36.8 kg
[~2022-06-25 09:43] MED LIST changes: +LACT10SO70 PO; +LEVO500T31 PO; +RIFA550T PO
[2022-06-25 11:29] LABS: Urine Bacteria NONE SEEN /hpf (None Seen); Urine Blood Negative /uL (Negative); Urine Hyaline Cast FEW /lpf (0 - 2); Urine Specific Gravity 1.017 (1.001-1.035); Urine WBC 1 /hpf (0 - 3)
[2022-06-25 11:38] LABS: Basophils # (auto) 0 10 ^3/uL (0-0.2); Basophils % (auto) 0.7 % (0.0-2.0); Eosinophils # (auto) 0.1 10 ^3/uL (0-0.8); Monocytes # (auto) 0.6 10 ^3/uL (0-1.3); Monocytes % (auto) 10.8 % (0.0-12.0)
[2022-06-25 11:39] LABS: Eosinophils % (auto) 1.9 % (0.0-7.0); Hematocrit 32.5 % (41.0-53.0); Hemoglobin 11.2 g/dL (13.5-17.5); Lymphocytes % (auto) 17.3 % (10.0-50.0); Mean Corpuscular Hemoglobin 35.9 pg (28.0-32.0); Mean Corpuscular Hgb Conc. 34.4 g/dL (32.0-36.0); Mean Corpuscular Volume 104.4 fL (80.0-100.0); Neutrophils # (auto) 3.8 10 ^3/uL (1.6-8.6); Neutrophils % (auto) 69.3 % (37.0-80.0); Red Blood Cells 3.11 10^6/uL (4.5-5.90); Red Cell Distribution Width 15.7 % (11.8-14.3); White Blood Cell 5.5 10^3/uL (4.4-10.8)
[2022-06-25 12:19] LABS: Albumin 1.7 g/dL (3.4-5.0); BUN/Creatinine Ratio 30.5; Bilirubin, Total 1.6 mg/dL (0.2-1.0); Calcium 7.9 mg/dL (8.5-10.1); Total Protein 6.8 g/dL (6.4-8.2)
[2022-06-25 12:39] LABS: Potassium 5.9 mmol/L (3.5-5.1)
[2022-06-25] MEDS ORDERED: SODIUM ZIRCONIUM CYCL 10 GM PAK PO ONE (12:45)
[2022-06-25] MEDS ORDERED: SODIUM BICARBONATE 8.4% INJ 50ML SYRINGE IV ONE (12:45)
[2022-06-25] MEDS ORDERED: InsuLIN REG 1unit/0.01ml Soln (100units/ml) IV ONE (12:45)
[2022-06-25] MEDS ORDERED: CALCIUM GLUC 1,000mg/50ml-NS 50 ML IV ONE (12:45)
[2022-06-25] MEDS ORDERED: FUROSEMIDE 20 MG/2 ML VIAL IV ONE (12:45)
[2022-06-25] MEDS ORDERED: ALBUTEROL SULF 2.5 MG/0.5ML(0.5%) NEB SOLN NEB ONE (12:45)
[2022-06-25] MEDS ORDERED: DEXTROSE (50%) 50ML SYRG IV ONE (12:45)
[2022-06-25] MEDS ORDERED: ACETAMINOPHEN 325 MG TAB PO PRN (17:00)
[2022-06-25] MEDS ORDERED: PANTOPRAZOLE 40 MG/10 ML VIAL INJ IV ONE (17:00)
[2022-06-25] MEDS: SODIUM CHLOR 0.9% PF (SALINE LOCK) 10ML VIAL/SYR IV SCH (22:17)
[2022-06-26] VITALS (62 sets, daily range): BP systolic 76–125; BP diastolic 24–76
[2022-06-26] MEDS: SODIUM CHLOR 0.9% PF (SALINE LOCK) 10ML VIAL/SYR IV SCH ×3 (06:00→21:50)
[2022-06-26 06:09] LABS: Hematocrit 29.8 % (41.0-53.0); Hemoglobin 10.4 g/dL (13.5-17.5); Mean Corpuscular Hemoglobin 35.7 pg (28.0-32.0); Mean Corpuscular Hgb Conc. 34.9 g/dL (32.0-36.0); Mean Corpuscular Volume 102.4 fL (80.0-100.0); Red Blood Cells 2.91 10^6/uL (4.5-5.90); Red Cell Distribution Width 15.4 % (11.8-14.3); White Blood Cell 6.2 10^3/uL (4.4-10.8)
[2022-06-26 06:14] LABS: Basophils % (manual) 0 (0.0-2.0); Blast Cells 0; Eosinophils % (manual) 0 (0-7); Metamyelocytes % 0; Myelocytes % 0; Promyelocytes % 0; Reactive Lymphocytes 0
[2022-06-26 06:28] LABS: Chloride 105 mmol/L (98-107); Sodium 133 mmol/L (136-145)
[2022-06-26 06:34] LABS: Alanine Aminotransferase 54 U/L (16-61); Albumin 1.6 g/dL (3.4-5.0); Anion Gap 8 (5-15); Aspartate Aminotransferase 69 U/L (15-37); BUN/Creatinine Ratio 28.1; Blood Urea Nitrogen 57 mg/dL (7-18); Calcium 7.8 mg/dL (8.5-10.1); Carbon Dioxide 20 mmol/L (21-32); GFR African American 43 mL/min; GFR Non-African American 36 mL/min; Glucose 103 mg/dL (74-106)
[2022-06-26 06:37] LABS: Alkaline Phosphatase 147 U/L (45-117); Bilirubin, Total 1.9 mg/dL (0.2-1.0); Total Protein 6.4 g/dL (6.4-8.2)
[2022-06-26 07:40] LABS: Potassium 6.7 mmol/L (3.5-5.1)
[2022-06-26] MEDS ORDERED: ALBUTEROL SULF 2.5 MG/0.5ML(0.5%) NEB SOLN ONE (08:31)
[2022-06-26] MEDS ORDERED: ETOMIDATE (2MG/ML) 20ML VIAL IV ONE (08:32)
[2022-06-26] MEDS ORDERED: SUCCINYLCHOLINE CHLORIDE 20 MG/ML 10ML VIAL IV ONE (08:32)
[2022-06-26] MEDS ORDERED: MIDAZOLAM DRIP 50 mg/50mL 50 ML IV ONE ×2 (08:35→08:41)
[2022-06-26] MEDS ORDERED: fentaNYL Drip 2500mCg/250mlNS 250 ML IV ONE (08:35)
[2022-06-26] MEDS ORDERED: CALCIUM GLUC 1,000mg/50ml-NS 50 ML IV ONE (08:45)
[2022-06-26 08:51] LABS: Band Neutrophils % (manual) 2; Lymphocytes % (manual) 9 (10.0-50.0); Monocytes % (manual) 9 (0-12)
[2022-06-26 08:59] LABS: Basophils # (auto) 0 10 ^3/uL (0-0.2); Eosinophils # (auto) 0.1 10 ^3/uL (0-0.8); Monocytes # (auto) 0.8 10 ^3/uL (0-1.3); Red Blood Cells 2.95 10^6/uL (4.5-5.90)
[2022-06-26] MEDS ORDERED: ALBUMIN 25% 100 ML IV ONE (09:00)
[2022-06-26] MEDS ORDERED: MEROPENEM 500MG IVPB 50 ML IV ONE (09:00)
[2022-06-26] MEDS ORDERED: ALBUTEROL SULF 2.5 MG/0.5ML(0.5%) NEB SOLN NEB ONE ×2 (09:00→10:15)
[2022-06-26 09:01] LABS: Basophils % (auto) 0.5 % (0.0-2.0); Hemoglobin 10.7 g/dL (13.5-17.5); Lymphocytes # (auto) 1.2 10 ^3/uL (0.4-5.4); Lymphocytes % (auto) 16.7 % (10.0-50.0); Mean Corpuscular Hemoglobin 36.4 pg (28.0-32.0); Mean Corpuscular Hgb Conc. 34.6 g/dL (32.0-36.0); Mean Corpuscular Volume 105.1 fL (80.0-100.0); Monocytes % (auto) 10.4 % (0.0-12.0); Neutrophils # (auto) 5.3 10 ^3/uL (1.6-8.6); Neutrophils % (auto) 71.4 % (37.0-80.0); Nucleated Red Blood Cells % 0.1 %; Red Cell Distribution Width 15.7 % (11.8-14.3); White Blood Cell 7.5 10^3/uL (4.4-10.8)
[2022-06-26 09:17] LABS: Albumin 1.6 g/dL (3.4-5.0); BUN/Creatinine Ratio 29.1; Bilirubin, Total 2.2 mg/dL (0.2-1.0); Calcium 7.8 mg/dL (8.5-10.1); Magnesium 3.2 mg/dL (1.6-2.6); Phosphorus 4.8 mg/dL (2.5-4.90); Total Protein 6.6 g/dL (6.4-8.2)
[2022-06-26 09:25] LABS: Potassium 6.6 mmol/L (3.5-5.1)
[2022-06-26] MEDS ORDERED: PANTOPRAZOLE 40 MG/10 ML VIAL INJ IV SCH (10:00)
[2022-06-26] MEDS ORDERED: SODIUM ZIRCONIUM CYCL 10 GM PAK PO ONE (10:15)
[2022-06-26] MEDS ORDERED: INSULIN LISPRO (HUMAN) 100 UNITS/ML ML SC ONE (10:15)
[2022-06-26] MEDS ORDERED: DEXTROSE (50%) 50ML SYRG IV ONE (10:15)
[2022-06-26] MEDS: CALCIUM GLUC 1,000mg/50ml-NS 50 ML IV SCH ×3 (10:45→11:15)
[2022-06-26] MEDS: ENOXAPARIN SOD 40 MG/0.4 ML SYRINGE SC SCH (10:52)
[2022-06-26] MEDS: PANTOPRAZOLE 40 MG/10 ML VIAL INJ IV SCH ×2 (10:52→21:48)
[2022-06-26 10:58] LABS: INR 1.49 (0.9-1.15); Partial Thromboplastin Time 33.5 sec (24.6-33.4)
[2022-06-26] MEDS: SODIUM BICARBONATE 50ML VIAL 50 ML in SOD CHL 0.45% 1,000 ML IV SCH ×2 (11:45→21:00)
[2022-06-26] MEDS: fentaNYL Drip 2500mCg/250mlNS 250 ML IV SCH ×2 (11:59→21:10)
[2022-06-26] MEDS: MIDAZOLAM DRIP 50 mg/50mL 50 ML IV SCH ×3 (11:59→21:52)
[2022-06-26] MEDS: ALBUMIN 25% 100 ML IV SCH ×2 (12:00→20:54)
[2022-06-26] MEDS ORDERED: BUMETANIDE INJECTION 12.5 MG in GIVE UN-DILUTED 0 ML IV SCH (12:00)
[2022-06-26] MEDS ORDERED: DEXTROSE (50%) 50ML SYRG IV PRN (12:15)
[2022-06-26 12:42] LABS: Urine Bacteria FEW /hpf (None Seen); Urine Blood Negative /uL (Negative); Urine Hyaline Cast FEW /lpf (0 - 2); Urine Specific Gravity 1.018 (1.001-1.035); Urine WBC 2 /hpf (0 - 3)
[2022-06-26] MEDS ORDERED: PROPOFOL 100 ML IV SCH (12:45)
[2022-06-26] MEDS ORDERED: NOREPINEPHRINE 8 MG/250ML KIT 250 ML IV ONE (12:55)
[2022-06-26 12:56] LABS: Amphetamine Screen, Urine NEGATIVE (NEGATIVE); Barbiturate Scree,Urine NEGATIVE (NEGATIVE); Benzodiazephine Screen, Urine POSITIVE (NEGATIVE); Cannabinoid Screen, Urine NEGATIVE (NEGATIVE); Cocaine Screen, Urine NEGATIVE (NEGATIVE); Opiate Scree,Urine NEGATIVE (NEGATIVE); Phencyclidine Screen, Urine NEGATIVE (NEGATIVE)
[2022-06-26] MEDS: NOREPINEPHRINE 8 MG/250ML KIT 250 ML IV SCH ×2 (13:00→21:01)
[2022-06-26] MEDS: OCTREOTIDE ACETATE 100 MCG/ML VL SUBCUT SCH ×2 (14:00→21:50)
[2022-06-26] MEDS: DOPamine 1600MCG/ML D5W 250 ML IV SCH (14:15)
[2022-06-26] MEDS: InsuLIN REG 1unit/0.01ml Soln (100units/ml) SC SCH (16:52)
[2022-06-26] MEDS: MEROPENEM 1GM IVPB 100 ML IV SCH (17:33)
[2022-06-26] MEDS: ACCU-CHEK COMFORT CURVE STRIP VI SCH (17:33)
[2022-06-26 21:10] LABS: Creatinine, Urine 155 mg/dL (30.0-125.0); Protein, Urine 16.8 mg/dL (0.0-11.9); Sodium Urine < 5 mmol/L (40-220)
[2022-06-27] VITALS (67 sets, daily range): BP systolic 51–132; BP diastolic 25–60
[2022-06-27] MEDS: ACCU-CHEK COMFORT CURVE STRIP VI SCH ×3 (00:23→12:03)
[2022-06-27] MEDS: MIDAZOLAM DRIP 50 mg/50mL 50 ML IV SCH ×3 (01:18→13:10)
[2022-06-27] MEDS: PHENYLEPHRINE IV 250 ML IV SCH ×2 (02:26→06:18)
[2022-06-27] MEDS: NOREPINEPHRINE 8 MG/250ML KIT 250 ML IV SCH ×2 (02:28→06:19)
[2022-06-27] MEDS: ALBUMIN 25% 100 ML IV SCH (03:43)
[2022-06-27 04:53] LABS: Hemoglobin 9.5 g/dL (13.5-17.5); Mean Corpuscular Hgb Conc. 33.1 g/dL (32.0-36.0); Neutrophils # (auto) 10.4 10 ^3/uL (1.6-8.6); Red Blood Cells 2.65 10^6/uL (4.5-5.90)
[2022-06-27 04:55] LABS: Basophils # (auto) 0.2 10 ^3/uL (0-0.2); Basophils % (auto) 1.2 % (0.0-2.0); Eosinophils # (auto) 0.2 10 ^3/uL (0-0.8); Eosinophils % (auto) 1.5 % (0.0-7.0); Hematocrit 28.8 % (41.0-53.0); Lymphocytes # (auto) 2.3 10 ^3/uL (0.4-5.4); Lymphocytes % (auto) 15.7 % (10.0-50.0); Mean Corpuscular Hemoglobin 35.8 pg (28.0-32.0); Mean Corpuscular Volume 108.5 fL (80.0-100.0); Monocytes # (auto) 1.7 10 ^3/uL (0-1.3); Monocytes % (auto) 11.7 % (0.0-12.0); Neutrophils % (auto) 69.9 % (37.0-80.0); Red Cell Distribution Width 16.1 % (11.8-14.3); White Blood Cell 14.9 10^3/uL (4.4-10.8)
[2022-06-27 05:19] LABS: Albumin 2.5 g/dL (3.4-5.0); Calcium 8.2 mg/dL (8.5-10.1); Magnesium 3.1 mg/dL (1.6-2.6)
[2022-06-27] MEDS: SODIUM BICARBONATE 50ML VIAL 50 ML in SOD CHL 0.45% 1,000 ML IV SCH (05:22)
[2022-06-27 05:24] LABS: BUN/Creatinine Ratio 23.6; Bilirubin, Total 3.9 mg/dL (0.2-1.0); Total Protein 6.5 g/dL (6.4-8.2)
[2022-06-27 05:59] LABS: Potassium 6.1 mmol/L (3.5-5.1)
[2022-06-27] MEDS: InsuLIN REG 1unit/0.01ml Soln (100units/ml) SC SCH ×3 (06:00→12:00)
[2022-06-27] MEDS: MEROPENEM 1GM IVPB 100 ML IV SCH (06:17)
[2022-06-27] MEDS: OCTREOTIDE ACETATE 100 MCG/ML VL SUBCUT SCH (06:18)
[2022-06-27] MEDS: SODIUM CHLOR 0.9% PF (SALINE LOCK) 10ML VIAL/SYR IV SCH (06:18)
[2022-06-27] MEDS ORDERED: CALCIUM GLUC 1,000mg/50ml-NS 50 ML IV ONE (06:30)
[2022-06-27] MEDS ORDERED: DEXTROSE (50%) 50ML SYRG IV ONE (06:30)
[2022-06-27] MEDS ORDERED: InsuLIN REG 1unit/0.01ml Soln (100units/ml) IV ONE (06:30)
[2022-06-27] MEDS ORDERED: ALBUTEROL SULF 2.5 MG/0.5ML(0.5%) NEB SOLN NEB ONE (06:30)
[2022-06-27] MEDS ORDERED: NOREPINEPHRINE BITARTRATE 32 MG in SODIUM CHL 0.9% 218 ML IV SCH (07:45)
[2022-06-27] MEDS ORDERED: EPINEPHrine HCL 250 ML IV SCH (07:45)
[2022-06-27] MEDS ORDERED: VASOPRESSIN 50 UNITS in D5W 5% 247.5 ML IV SCH (07:45)
[2022-06-27] MEDS ORDERED: PHENYLEPHRINE INJ 80 MG in SODIUM CHL 0.9% 242 ML IV SCH (07:45)
[2022-06-27] MEDS ORDERED: ALBUMIN 25% 100 ML IV ONE (08:00)
[2022-06-27] MEDS: ENOXAPARIN SOD 40 MG/0.4 ML SYRINGE SC SCH (10:00)
[2022-06-27] MEDS: PANTOPRAZOLE 40 MG/10 ML VIAL INJ IV SCH (10:23)
[2022-06-27] MEDS ORDERED: SODIUM BICARBONATE 50ML VIAL 100 ML in SOD CHL 0.45% 1,000 ML IV SCH (11:45)
[2022-06-27] MEDS: fentaNYL Drip 2500mCg/250mlNS 250 ML IV SCH (12:00)
[2022-06-27] MEDS ORDERED: SODIUM ZIRCONIUM CYCL 10 GM PAK PO SCH (13:00)
[2022-06-27] MEDS: DOPamine 1600MCG/ML D5W 250 ML IV SCH (13:40)
[2022-06-27] MEDS ORDERED: MORPHINE SULFATE INJ 2 MG/ml SYRG ONE (14:40)
[2022-06-27] MEDS ORDERED: MORPHINE SULFATE INJ 2 MG/ml SYRG IV PRN (14:45)
[2022-06-27] MEDS ORDERED: LORazepam 2MG/ML-1ML VIAL IV PRN (14:45)
[2022-06-27] MEDS ORDERED: LORazepam 2MG/ML-1ML VIAL ONE (14:46)
[2022-06-27] MEDS ORDERED: MEROPENEM 500MG IVPB 50 ML IV SCH (18:00)
[2022-06-28] MEDS ORDERED: ENOXAPARIN SOD 30 MG/0.3 ML SYRINGE SC SCH (10:00)
== END 2022-06-27 15:57 | DRG 871 ==
LOC: ER 09:43 → OVERFLOW 16:55 → WEST WING 23:54 → ICU CENTRL 06-26 09:47 → ICU WEST 06-26 18:18
PROVIDERS: ADMIT Nurse Practitioner Family; ATTEND Internal Medicine
PROC: 0W993ZZ Drainage of Right Pleural Cavity, Percutaneous Approach (ICD-10-PCS; principal; 2022-06-26)
PROC: 5A1945Z Respiratory Ventilation, 24-96 Consecutive Hours (ICD-10-PCS; 2022-06-26)
PROC: 0BH17EZ Insertion of Endotracheal Airway into Trachea, Via Natural or Artificial Opening (ICD-10-PCS; 2022-06-26)
PROC: 0W9G3ZZ Drainage of Peritoneal Cavity, Percutaneous Approach (ICD-10-PCS; 2022-06-26)
PROC: 02HV33Z Insertion of Infusion Device into Superior Vena Cava, Percutaneous Approach (ICD-10-PCS; 2022-06-26)
PROC: B548ZZA Ultrasonography of Superior Vena Cava, Guidance (ICD-10-PCS; 2022-06-26)
DX: A41.9 Sepsis, unspecified organism (principal); E43 Unspecified severe protein-calorie malnutrition; J96.01 Acute respiratory failure with hypoxia; K76.7 Hepatorenal syndrome; N17.0 Acute kidney failure with tubular necrosis; G93.41 Metabolic encephalopathy; J69.0 Pneumonitis due to inhalation of food and vomit; R65.21 Severe sepsis with septic shock; J90 Pleural effusion, not elsewhere classified; E87.1 Hypo-osmolality and hyponatremia; E87.20 Acidosis, unspecified; Z68.1 Body mass index [BMI] 19.9 or less, adult; Z20.822 Contact with and (suspected) exposure to COVID-19; E66.01 Morbid (severe) obesity due to excess calories; K70.31 Alcoholic cirrhosis of liver with ascites; N18.9 Chronic kidney disease, unspecified; D53.9 Nutritional anemia, unspecified; D63.1 Anemia in chronic kidney disease; E11.22 Type 2 diabetes mellitus with diabetic chronic kidney disease; E87.5 Hyperkalemia; E88.09 Other disorders of plasma-protein metabolism, not elsewhere classified; F17.210 Nicotine dependence, cigarettes, uncomplicated; Z79.84 Long term (current) use of oral hypoglycemic drugs; Z79.899 Other long term (current) drug therapy
CPT/HCPCS: 32555; 36415; 36600; 49083; 71045; 76705; 76775; 80053; 80307; 80320; 81001; 82105; 82140; 82306; 82570; 82805; 82962; 83690; 83735; 83880; 83930; 83935; 83970; 83986; 84100; 84132; 84156; 84300; 84443; 84484; 85007; 85025; 85027; 85610; 85730; 87081; 87205; 87426; 89051; 93005; 94003; 94640; 99291; C9113; G0378; J0171; J0330; J1815; J2185; J2250; J7060; P9047